=== PATIENT | male | born 1950 ===

== ENCOUNTER 2019-09-26 20:18 | Inpatient (IN) | payer MEDICARE, OTHER ==
[~2019-09-26] VITALS: Ht 167.6 cm; Wt 100.5 kg
[2019-09-26] MEDS ORDERED: PANTOPRAZOLE 80 MG in SODIUM CHLORIDE 0.9% 100 ML IV SCH (20:47)
[2019-09-26] MEDS ORDERED: PLEASE ENTER HEIGHT AND WEIGHT MC SCH (21:00)
[2019-09-26] MEDS ORDERED: PLEASE ENTER ALLERGIES MC SCH (21:00)
[2019-09-26 21:10] LABS: ALBUMIN 3.2 g/dL (3.4-5.0); ANION GAP 5 mmol/L (5-15); CALCIUM 8.3 mg/dL (8.5-10.1); CHLORIDE 114 mmol/L (98-107); CREATININE 1.96 mg/dL (0.7-1.3)
[2019-09-26 21:11] LABS: BASOPHILS # (AUTO) 0.04 x10^3/uL (0-0.1); BASOPHILS % (AUTO) 0 % (0-1); EOSINOPHILS # (AUTO) 0.18 x10^3/uL (0-0.4); EOSINOPHILS % (AUTO) 2 % (1-7); LYMPHOCYTES # (AUTO) 1.64 x10^3/uL (1-3.4); LYMPHOCYTES % (AUTO) 19 % (22-44); MD NO; MEAN CORPUSCULAR HEMOGLOBIN 28.6 pg (27.5-34.5); MEAN CORPUSCULAR HGB CONC 32.1 g/dL (33.2-36.2); MEAN PLATELET VOLUME 7.8 fL (7.4-10.4); MONOCYTES # (AUTO) 0.75 x10^3/uL (0.2-0.8); MONOCYTES % (AUTO) 9 % (2-9); NEUTROPHILS # (AUTO) 6.08 x10^3/uL (1.8-6.8); NEUTROPHILS % (AUTO) 70 % (42-75); PLATELET COUNT 207 x10^3/uL (130-400); RED BLOOD COUNT 2.65 x10^6/uL (4.38-5.82); RED CELL DISTRIBUTION WIDTH 18.5 % (9.4-14.8)
--- NOTE | 2019-09-26 21:16 | NUR ---
Recieved call from lab for critical BUN of 112. Provider made aware No new orders
[2019-09-26] MEDS ORDERED: DEXTROSE 50%, 50ML SYRINGE IVPush ONE (21:30)
[2019-09-26] MEDS ORDERED: SODIUM BICARB 8.4%, 50ML SYRINGE IVPush ONE (21:30)
[2019-09-26] MEDS ORDERED: SODIUM CHLORIDE 0.9% 1,000ML IVBOLUS ONE (21:30)
[2019-09-26] MEDS ORDERED: DEXTROSE 50%, 50ML SYRINGE ONE (21:38)
[2019-09-26] MEDS ORDERED: INSULIN SINGLE DOSE, ER ONE (21:39)
[2019-09-26] MEDS: INSULIN REGULAR 100 UNITS/ML, 3ML VIAL IVPush ONE ×2 (21:47→21:48)
[2019-09-26] MEDS ORDERED: ALEN70TA3 PO (22:12)
[2019-09-26] MEDS ORDERED: CITA20TA9 PO (22:12)
[2019-09-26] MEDS ORDERED: GABA600T7 PO (22:12)
[2019-09-26] MEDS ORDERED: TIOT18CA INH (22:12)
[2019-09-26] MEDS ORDERED: UMEC1DIS INH (22:12)
[2019-09-26] MEDS ORDERED: AMIT25TA PO (22:12)
[2019-09-26] MEDS ORDERED: MELO7.5T5 PO (22:12)
[2019-09-26] MEDS ORDERED: INSU100V8 SQ (22:12)
[2019-09-26] MEDS ORDERED: FURO40TA6 PO (22:12)
[2019-09-26] MEDS ORDERED: ASPI-496 PO (22:12)
[2019-09-26] MEDS ORDERED: METF500T27 PO (22:12)
[2019-09-26] MEDS ORDERED: PRED5TAB19 PO (22:12)
[2019-09-26] MEDS ORDERED: ALOG6.25 PO (22:12)
[2019-09-26] MEDS ORDERED: GABA-827 PO (22:12)
[2019-09-26] MEDS ORDERED: CHOL10003 PO (22:12)
[2019-09-26] MEDS ORDERED: duoneb (22:12)
[2019-09-26] MEDS ORDERED: SODIUM BICARBONATE 1 MEQ/ML, 50ML VIAL ONE (22:40)
[2019-09-26] MEDS ORDERED: SODIUM CHLORIDE 0.9% 1,000 ML IV SCH (22:46)
--- NOTE | 2019-09-26 22:58 | NUR ---
REPORT FROM BEATRIS LEE. PT CARE RESPONSIBLITIES ASSUMED.
[2019-09-26] MEDS ORDERED: HYDROcodone/APAP 5/325 TABLET PO PRN (23:00)
[2019-09-26] MEDS ORDERED: morphine SULFATE 10 MG/ML, 1ML IVPush PRN (23:00)
[2019-09-26] MEDS ORDERED: ALBUTEROL/IPRATROPIUM 2.5MG/0.5MG, 3 ML NEB PRN (23:00)
[2019-09-26] MEDS ORDERED: hydrALAzine 20 MG/ML, 1ML IVPush PRN (23:00)
[2019-09-26] MEDS ORDERED: ACETAMINOPHEN 325 MG TABLET PO PRN (23:00)
[2019-09-26] MEDS ORDERED: ONDANSETRON 2MG/ML, 2ML IVPush PRN (23:00)
[2019-09-26] MEDS ORDERED: SODIUM POLYSTYRENE SULFONATE ORAL SUSP PO ONE (23:00)
[2019-09-26] MEDS ORDERED: D5%-0.9% NACL 1,000 ML IV SCH (23:00)
[2019-09-26] MEDS ORDERED: GUAIFENESIN/DM 200-20MG, 10ML UDC PO PRN (23:00)
[2019-09-26] MEDS ORDERED: CYCLOBENZAPRINE 10 MG TABLET PO PRN (23:00)
[2019-09-26] MEDS ORDERED: FAMOTIDINE 20 MG/2 ML IVPush SCH (23:00)
--- NOTE | 2019-09-26 23:13 | NUR ---
Post insulin/d50 ->fsbs 194 Report to Hollie SPEAR
--- NOTE | 2019-09-26 23:44 | NUR ---
REPORT TO BEATRIS KAYE. PT IN BED AWAITING TRANSPORT AT THIS TIME.
[2019-09-27] VITALS (9 sets, daily range): BP systolic 95–158; BP diastolic 53–93
[2019-09-27] MEDS: ALBUTEROL HFA 90 MCG/SPRAY INH SCH ×2 (01:00→06:00)
[2019-09-27] MEDS ORDERED: ALBUTEROL-IPRATROPIUM MDI INH INH PRN (02:30)
[2019-09-27] MEDS: COMBIVENT MC SCH ×3 (02:30→18:30)
[2019-09-27 03:16] LABS: BASOPHILS # (AUTO) 0.03 x10^3/uL (0-0.1); BASOPHILS % (AUTO) 0 % (0-1); EOSINOPHILS # (AUTO) 0.15 x10^3/uL (0-0.4); EOSINOPHILS % (AUTO) 2 % (1-7); LYMPHOCYTES # (AUTO) 1.19 x10^3/uL (1-3.4); LYMPHOCYTES % (AUTO) 13 % (22-44); MD NO; MEAN CORPUSCULAR HEMOGLOBIN 28.6 pg (27.5-34.5); MEAN CORPUSCULAR HGB CONC 32.4 g/dL (33.2-36.2); MEAN PLATELET VOLUME 7.7 fL (7.4-10.4); MONOCYTES # (AUTO) 0.73 x10^3/uL (0.2-0.8); MONOCYTES % (AUTO) 8 % (2-9); NEUTROPHILS # (AUTO) 7.15 x10^3/uL (1.8-6.8); NEUTROPHILS % (AUTO) 77 % (42-75); PLATELET COUNT 199 x10^3/uL (130-400); RED BLOOD COUNT 2.79 x10^6/uL (4.38-5.82)
[2019-09-27 03:24] LABS: ANION GAP 5 mmol/L (5-15); CALCIUM 8.4 mg/dL (8.5-10.1); CHLORIDE 118 mmol/L (98-107); CREATININE 1.58 mg/dL (0.7-1.3)
[2019-09-27] MEDS: INSULIN REGULAR 100 UNITS/ML, 3ML VIAL SQ-INSULIN SCH ×4 (07:00→21:00)
[2019-09-27] MEDS ORDERED: CHLORHEXIDINE 15 ML UDC ONE (07:53)
[2019-09-27] MEDS ORDERED: PROPOFOL 10 MG/ML, 20ML ONE (07:59)
[2019-09-27] MEDS ORDERED: LACTATED RINGERS 1,000 ML ONE (07:59)
[2019-09-27] MEDS ORDERED: ALBUTEROL SULFATE 2.5 MG/3 ML NPPB PRN (08:30)
[2019-09-27] MEDS ORDERED: OXYcodone 5 MG/5 ML ORAL.SOL UDC PO PRN (08:30)
[2019-09-27] MEDS ORDERED: DIAZEPAM 5 MG/ML, 2ML IVPush PRN (08:30)
[2019-09-27] MEDS ORDERED: LABETALOL 5MG/ML, 20ML IV PRN (08:30)
[2019-09-27] MEDS ORDERED: hydrALAzine 20 MG/ML, 1ML IV PRN (08:30)
[2019-09-27] MEDS ORDERED: FENTANYL PF 100 MCG/2ML IV PRN (08:30)
[2019-09-27] MEDS ORDERED: MEPERIDINE/PF 25MG/0.5ML IVPush PRN (08:30)
[2019-09-27] MEDS ORDERED: HYDROmorphone 2 MG/ML, 1ML IVPush PRN (08:30)
[2019-09-27] MEDS ORDERED: PROMETHAZINE 25 MG/ML, 1ML IV PRN (08:30)
[2019-09-27] MEDS: PANTOPRAZOLE 80 MG in SODIUM CHLORIDE 0.9% 100 ML IV SCH ×2 (08:55→20:58)
[2019-09-27] MEDS ORDERED: TIOTROPIUM BROMIDE 18 MCG/INH INH SCH (09:00)
[2019-09-27] MEDS ORDERED: LINAGLIPTIN 5 MG TAB PO SCH (09:00)
[2019-09-27] MEDS ORDERED: FUROSEMIDE 40 MG TABLET PO SCH (09:00)
[2019-09-27] MEDS: CHOLECALCIFEROL 5,000u TAB PO SCH (09:17)
[2019-09-27 13:06] LABS: ANION GAP 3 mmol/L (5-15); CALCIUM 8.4 mg/dL (8.5-10.1); CHLORIDE 116 mmol/L (98-107)
[2019-09-27 13:08] LABS: CREATININE 1.25 mg/dL (0.7-1.3)
[2019-09-27] MEDS: MICONAZOLE CRM 2%, 15GM TP SCH ×2 (14:00→22:45)
[2019-09-27] MEDS ORDERED: D5%-0.45% NACL 1,000 ML IV SCH (14:00)
[2019-09-27] MEDS: D5%-0.45% NACL 1,000 ML IV SCH (14:12)
[2019-09-27] MEDS: GABAPENTIN 400 MG CAPSULE PO SCH ×2 (17:34→20:59)
[2019-09-27] MEDS: AMITRIPTYLINE 25 MG TABLET PO SCH (20:58)
[2019-09-27] MEDS: TEMAZEPAM 15 MG CAPSULE PO PRN (20:58)
[2019-09-27] MEDS: GABAPENTIN 300 MG CAPSULE PO SCH (20:59)
[2019-09-27] MEDS ORDERED: TEMPLATE NON-FORMULARY MED. (Gabapentin** 600 MG) PO SCH (21:00)
[2019-09-28 00:55] VITALS: BP 116/80
[2019-09-28 02:00] VITALS: BP 149/89
[2019-09-28 02:01] VITALS: BP 122/82
[2019-09-28 03:27] LABS: ANION GAP 5 mmol/L (5-15); CALCIUM 8.1 mg/dL (8.5-10.1); CHLORIDE 113 mmol/L (98-107); CREATININE 0.89 mg/dL (0.7-1.3)
[2019-09-28 03:28] LABS: BASOPHILS # (AUTO) 0.03 x10^3/uL (0-0.1); BASOPHILS % (AUTO) 0 % (0-1); EOSINOPHILS # (AUTO) 0.55 x10^3/uL (0-0.4); EOSINOPHILS % (AUTO) 6 % (1-7); LYMPHOCYTES # (AUTO) 1.82 x10^3/uL (1-3.4); LYMPHOCYTES % (AUTO) 20 % (22-44); MD NO; MEAN CORPUSCULAR HEMOGLOBIN 28.8 pg (27.5-34.5); MEAN CORPUSCULAR HGB CONC 32.7 g/dL (33.2-36.2); MEAN PLATELET VOLUME 7.2 fL (7.4-10.4); MONOCYTES # (AUTO) 0.74 x10^3/uL (0.2-0.8); MONOCYTES % (AUTO) 8 % (2-9); NEUTROPHILS # (AUTO) 5.77 x10^3/uL (1.8-6.8); NEUTROPHILS % (AUTO) 65 % (42-75); PLATELET COUNT 221 x10^3/uL (130-400); RED CELL DISTRIBUTION WIDTH 16.8 % (9.4-14.8)
[2019-09-28] MEDS: D5%-0.45% NACL 1,000 ML IV SCH (05:05)
[2019-09-28 06:57] VITALS: BP 124/83
[2019-09-28] MEDS: INSULIN REGULAR 100 UNITS/ML, 3ML VIAL SQ-INSULIN SCH ×4 (07:00→20:15)
[2019-09-28] MEDS: CITALOPRAM 20 MG TABLET PO SCH (08:16)
[2019-09-28] MEDS: GABAPENTIN 400 MG CAPSULE PO SCH ×3 (08:16→20:14)
[2019-09-28] MEDS: CHOLECALCIFEROL 5,000u TAB PO SCH (08:16)
[2019-09-28] MEDS: PANTOPRAZOLE 80 MG in SODIUM CHLORIDE 0.9% 100 ML IV SCH ×2 (09:45→20:13)
[2019-09-28 12:18] VITALS: BP 130/85
[2019-09-28] MEDS: MICONAZOLE CRM 2%, 15GM TP SCH ×2 (15:14→20:17)
[2019-09-28 19:49] VITALS: BP 141/81
[2019-09-28] MEDS: GABAPENTIN 300 MG CAPSULE PO SCH (20:14)
[2019-09-28] MEDS: AMITRIPTYLINE 25 MG TABLET PO SCH (20:14)
[2019-09-28] MEDS: TEMAZEPAM 15 MG CAPSULE PO PRN (20:14)
[2019-09-29 02:47] VITALS: BP 123/79
[2019-09-29 07:10] VITALS: BP 102/69
[2019-09-29] MEDS: INSULIN REGULAR 100 UNITS/ML, 3ML VIAL SQ-INSULIN SCH ×4 (07:31→21:00)
[2019-09-29] MEDS: PANTOPRAZOLE 80 MG in SODIUM CHLORIDE 0.9% 100 ML IV SCH (08:25)
[2019-09-29] MEDS: CHOLECALCIFEROL 5,000u TAB PO SCH (08:27)
[2019-09-29] MEDS: CITALOPRAM 20 MG TABLET PO SCH (08:27)
[2019-09-29] MEDS: GABAPENTIN 400 MG CAPSULE PO SCH ×3 (08:27→21:00)
[2019-09-29] MEDS: MICONAZOLE CRM 2%, 15GM TP SCH ×2 (08:28→21:00)
[2019-09-29] MEDS ORDERED: PANT40TA3 PO (08:50)
[2019-09-29] MEDS ORDERED: MICO14CR TP (08:50)
[2019-09-29 12:45] VITALS: BP 122/78
[2019-09-29] MEDS: DOCUSATE 100 MG CAPSULE PO PRN ×2 (13:08→21:09)
[2019-09-29 20:00] VITALS: BP 107/64
[2019-09-29] MEDS: AMITRIPTYLINE 25 MG TABLET PO SCH (21:09)
[2019-09-29] MEDS: GABAPENTIN 300 MG CAPSULE PO SCH (21:09)
[2019-09-29] MEDS: PANTOPRAZOLE 40MG TABLET PO SCH (21:09)
[2019-09-29] MEDS: TEMAZEPAM 15 MG CAPSULE PO PRN (21:09)
[2019-09-30 02:00] VITALS: BP 107/72
[2019-09-30] MEDS ORDERED: ALENDRONATE 35 MG TABLET PO SCH (06:30)
[2019-09-30] MEDS: INSULIN REGULAR 100 UNITS/ML, 3ML VIAL SQ-INSULIN SCH ×2 (07:00→11:00)
[2019-09-30 07:25] VITALS: BP 125/83
[2019-09-30] MEDS: MICONAZOLE CRM 2%, 15GM TP SCH (09:00)
[2019-09-30] MEDS ORDERED: OMNIPAQUE 350 MG/ML, 100ML BOTTLE ONE (09:17)
[2019-09-30] MEDS: GABAPENTIN 400 MG CAPSULE PO SCH (09:42)
[2019-09-30] MEDS: PANTOPRAZOLE 40MG TABLET PO SCH (09:42)
[2019-09-30] MEDS: CITALOPRAM 20 MG TABLET PO SCH (09:42)
[2019-09-30] MEDS: DOCUSATE 100 MG CAPSULE PO PRN (09:42)
[2019-09-30] MEDS: CHOLECALCIFEROL 5,000u TAB PO SCH (09:43)
[2019-09-30] MEDS ORDERED: BISACODYL 10 MG SUPP PR PRN ×2 (10:00→10:30)
[2019-09-30] MEDS ORDERED: AMOX1TAB64 PO (12:51)
== END 2019-09-30 14:14 | disposition home health service (06) | DRG 378 ==
LOC: ED 20:48 → EDIP 09-27 00:18 → 4EST 09-27 00:22 → DCLOUNGE 09-30 14:05
PROVIDERS: ADMIT Internal Medicine; ATTEND Internal Medicine
PROC: 30233N1 Transfusion of Nonautologous Red Blood Cells into Peripheral Vein, Percutaneous Approach (ICD-10-PCS; 2019-09-27)
PROC: 0W3P8ZZ Control Bleeding in Gastrointestinal Tract, Via Natural or Artificial Opening Endoscopic (ICD-10-PCS; principal; 2019-09-27 08:00)
DX: K25.4 Chronic or unspecified gastric ulcer with hemorrhage (principal); D62 Acute posthemorrhagic anemia; N17.9 Acute kidney failure, unspecified; E87.2 Acidosis; E11.22 Type 2 diabetes mellitus with diabetic chronic kidney disease; B36.9 Superficial mycosis, unspecified; E66.01 Morbid (severe) obesity due to excess calories; E78.5 Hyperlipidemia, unspecified; E87.5 Hyperkalemia; F17.210 Nicotine dependence, cigarettes, uncomplicated; G47.00 Insomnia, unspecified; I12.9 Hypertensive chronic kidney disease with stage 1 through stage 4 chronic kidney disease, or unspecified chronic kidney disease; J44.9 Chronic obstructive pulmonary disease, unspecified; K11.1 Hypertrophy of salivary gland; K29.70 Gastritis, unspecified, without bleeding; K64.9 Unspecified hemorrhoids; M19.90 Unspecified osteoarthritis, unspecified site; Z96.649 Presence of unspecified artificial hip joint; M81.0 Age-related osteoporosis without current pathological fracture; N18.9 Chronic kidney disease, unspecified; H53.149 Visual discomfort, unspecified; M81.8 Other osteoporosis without current pathological fracture; M85.80 Other specified disorders of bone density and structure, unspecified site; R68.83 Chills (without fever); Z79.4 Long term (current) use of insulin; Z79.82 Long term (current) use of aspirin; Z68.39 Body mass index [BMI] 39.0-39.9, adult; Z83.3 Family history of diabetes mellitus; Z84.89 Family history of other specified conditions; Z90.49 Acquired absence of other specified parts of digestive tract
CPT/HCPCS: 36415; 36430; 70491; 76536; 76942; 80048; 82040; 82962; 83036; 84443; 85014; 85018; 85025; 86850; 86900; 86923; 93005; 96374; 96375; 99291; G0378; J1815; J2704; J7042; Q9967; C9113; J3490; J7030; J7120; P9016